=== PATIENT | male | born 1995 | race Hispanic/Latino ===

== ENCOUNTER 2023-02-20 18:07 | Emergency (ER) | payer SELFPAY ==
[2023-02-20] MEDS ORDERED: Orphenadrine Citrate 60 MG/2 ML VIAL ONE (19:12)
[2023-02-20] MEDS ORDERED: Ketorolac Tromethamine 30 MG/ML VIAL ONE (19:12)
== END 2023-02-20 19:58 | disposition home or self-care (01) ==
LOC: CSHERS 18:07
DX: M54.50 Low back pain, unspecified (principal); M25.552 Pain in left hip; W11.XXXA Fall on and from ladder, initial encounter; Y92.69 Other specified industrial and construction area as the place of occurrence of the external cause
CPT/HCPCS: 72100; 96372; J1885; J2360